=== PATIENT | male | born 1980 ===

== ENCOUNTER 2017-09-21 22:44 | Emergency (ER) | payer OTHER ==
[2017-09-21 22:59] VITALS: BP 131/78; PULSE 107; RESP 20; TEMP 99; O2SAT 97
[2017-09-21] MEDS ORDERED: Amoxicillin-Clav 875-125 mg Tab PO STA (23:02)
--- NOTE | 2017-09-21 23:05 | ED PDOC ---
HPI: CCC, URI, Sore Throat Time Seen by Provider: 09/21/17 22:59 Chief Complaint (Nursing): ENT Problem Chief Complaint (Provider): Sore throat History Per: Patient Additional Complaint(s): 37 yo male, no PMH, presents to ED with complaints of sore throat and fever x2 days. no other complaints. no sick contacted. took 1 tab Motrin 200 mg at 6 pm Past Medical History Reviewed: Nursing Documentation, Vital Signs Vital Signs: Last Vital Signs Temp 99 F 09/21/17 22:57 Pulse 107 H 09/21/17 22:57 Resp 20 09/21/17 22:57 BP 131/78 09/21/17 22:57 Pulse Ox 97 09/21/17 22:57 - Medical History PMH: Asthma - Surgical History Surgical History: No Surg Hx - Family History Family History: States: Unknown Family Hx - Living Arrangements Living Arrangements: With Family - Social History Alcohol: Occasional Drugs: Denies - Home Medications Home Medications: Ambulatory Orders Medication Instructions Recorded Amoxicillin/Clavulanate Pota 1 tab PO Q12 #14 tab 09/29/15 [Augmentin 875 mg-125 mg] Docusate [Colace] 100 mg PO BID #0 cap 09/29/15 oxyCODONE/Acetaminophen [Percocet 1 tab PO Q4 PRN #0 tab 09/29/15 5/325 mg Tab] Ibuprofen [Motrin Tab] 800 mg PO Q8 PRN #20 tab 12/22/16 - Allergies Allergies/Adverse Reactions: Allergies Allergy/AdvReac Type Severity Reaction Status Date / Time No Known Allergies Allergy Verified 09/23/15 19:23 Review of Systems ROS Statement: Except As Marked, All Systems Reviewed And Found Negative ENT: Positive for: Throat Pain Physical Exam - Reviewed Nursing Documentation Reviewed: Yes Vital Signs Reviewed: Yes - Physical Exam Appears: Positive for: Well, Non-toxic, No Acute Distress Head Exam: Positive for: ATRAUMATIC, NORMAL INSPECTION, NORMOCEPHALIC Skin: Positive for: Normal Color, Warm, DRY Eye Exam: Positive for: EOMI, Normal appearance, PERRL ENT: Positive for: Pharyngeal Erythema, Tonsillar Exudate, Other (no uvula devation). Negative for: Tonsillar Swelling Neck: Positive for: Normal, Painless ROM Cardiovascular/Chest: Positive for: Regular Rate, Rhythm Respiratory: Positive for: CNT, Normal Breath Sounds Gastrointestinal/Abdominal: Positive for: Normal Exam, Bowel Sounds, Soft Back: Positive for: Normal Inspection Extremity: Positive for: Normal ROM Neurologic/Psych: Positive for: Alert, Oriented - ECG O2 Sat by Pulse Oximetry: 97 Medical Decision Making Medical Decision Making: Medicated with Clindamycin 300 mg tab PO and Motrin 600 mg. Disposition - Clinical Impression Clinical Impression: Streptococcal sore throat - Patient ED Disposition Is Patient to be Admitted: No - Disposition Disposition: Routine/Home Disposition Time: 23:06 Condition: STABLE - POA Present On Arrival: None
[2017-09-21] MEDS ORDERED: Clindamycin ORAL SUSP 75 MG/5 ML PO STA (23:06)
== END 2017-09-21 23:21 | disposition home or self-care (01) ==
LOC: H.ER 22:44
DX: J02.0 Streptococcal pharyngitis (principal); J45.909 Unspecified asthma, uncomplicated

== ENCOUNTER 2017-09-23 10:02 | Emergency (ER) | payer OTHER ==
[2017-09-23 10:05] VITALS: PULSE 78
[2017-09-23] MEDS ORDERED: Sodium Chloride 0.9% 1,000 ML IV STA (10:39)
[2017-09-23] MEDS ORDERED: Dexamethasone 10 MG in Dextrose 5% In Water 50 ML IVP ONE (10:40)
--- NOTE | 2017-09-23 10:47 | ED PDOC ---
HPI: General Adult Time Seen by Provider: 09/23/17 10:20 Chief Complaint (Nursing): ENT Problem History Per: Patient Additional Complaint(s): Pt. states for the past 4 days he's had sore throat with tactile fever but has not checked his temperature. Pt. was seen in ED on 09/20/2017 for sore throat and was prescribed Clindamycin and Motrin which has not provided any relief. Denies abdominal pain, rash, fever, SOB, sick contacts, recent travel. Past Medical History Reviewed: Historical Data, Nursing Documentation, Vital Signs Vital Signs: Last Vital Signs Temp 97.2 F L 09/23/17 10:04 Pulse 78 09/23/17 10:04 Resp 20 09/23/17 10:04 BP 109/63 09/23/17 10:04 Pulse Ox 100 09/23/17 10:49 - Medical History PMH: Asthma - Family History Family History: States: No Known Family Hx - Home Medications Home Medications: Ambulatory Orders Medication Instructions Recorded Amoxicillin/Clavulanate Pota 1 tab PO Q12 #14 tab 09/29/15 [Augmentin 875 mg-125 mg] Docusate [Colace] 100 mg PO BID #0 cap 09/29/15 oxyCODONE/Acetaminophen [Percocet 1 tab PO Q4 PRN #0 tab 09/29/15 5/325 mg Tab] Ibuprofen [Motrin Tab] 800 mg PO Q8 PRN #20 tab 12/22/16 Clindamycin [Cleocin] 300 mg PO BID #14 cap 09/21/17 Ibuprofen [Motrin] 600 mg PO Q6 #20 tab 09/21/17 Amoxicillin/Clavulanate [Augmentin 1 tab PO Q8 #30 tab 09/23/17 875 MG-125 MG] - Allergies Allergies/Adverse Reactions: Allergies Allergy/AdvReac Type Severity Reaction Status Date / Time No Known Allergies Allergy Verified 09/23/15 19:23 Review of Systems ROS Statement: Except As Marked, All Systems Reviewed And Found Negative ENT: Positive for: Throat Pain, Throat Swelling Physical Exam - Physical Exam Appears: Positive for: Well, Non-toxic, No Acute Distress Skin: Positive for: Normal Color, Warm. Negative for: Rash Eye Exam: Positive for: EOMI, PERRL. Negative for: Normal appearance (L eye with upper eyelid droop (chronic for patient)), Periorbital swelling, Periorbital tenderness, Conjunctival injection ENT: Positive for: Pharyngeal Erythema, Tonsillar Exudate, Tonsillar Swelling ( but non-kissing), Other (mild uvular swelling; able to swallow saliva) Neck: Positive for: Normal, Painless ROM Cardiovascular/Chest: Positive for: Regular Rate, Rhythm Respiratory: Positive for: Normal Breath Sounds. Negative for: Respiratory Distress Gastrointestinal/Abdominal: Positive for: Normal Exam, Soft. Negative for: Tenderness Back: Positive for: Normal Inspection Extremity: Positive for: Normal ROM Neurologic/Psych: Positive for: Alert, Oriented. Negative for: Aphasia, Facial Droop - Laboratory Results Result Diagrams: 09/23/17 10:50 09/23/17 10:50 - ECG O2 Sat by Pulse Oximetry: 100 - Progress ED Course And Treament: Labs ordered. Toradol 30mg IV, decadron 10mg IV, IV NS bolus x 1 ordered. Pt. instructed to stop taking Clindamycin and to start Augmentin today. Disposition - Clinical Impression Clinical Impression: Uvulitis, Tonsillitis - Patient ED Disposition Is Patient to be Admitted: No - Disposition Referrals: [facility] [Outside] [facility] [place] [Outside] Disposition: Routine/Home Disposition Time: 12:15 Condition: STABLE Additional Instructions: STOP TAKING CLINDAMYCIN Prescriptions: Amoxicillin/Clavulanate [Augmentin 875 MG-125 MG] 1 tab PO Q8 #30 tab Instructions: Uvulitis (ED), Tonsillitis (ED) Forms: [employer] (American)
[2017-09-23 11:12] LABS: BASO % 0.5 % (0.0-2.0); EOS # 0.2 K/uL (0.0-0.7); EOS % 1.8 % (0.0-4.0); LYMPH # 1.6 K/uL (1.0-4.3); LYMPH % 14.9 % (20.0-40.0); MEAN CELL VOLUME 82.4 fl (80.0-94.0); MEAN CORPUSCULAR HEMOGLOBIN 27.6 pg (27.0-31.0); MEAN CORPUSCULAR HGB CONC 33.5 g/dL (33.0-37.0); MEAN PLATELET VOLUME 9.2 fl (7.2-11.7); MONO # 1.1 K/uL (0.0-0.8); MONO % 10.4 % (0.0-10.0); NEUT # 7.7 K/uL (1.8-7.0); NEUT % 72.4 % (50.0-75.0); RED CELL DISTRIBUTION WIDTH 14.1 % (11.5-14.5); WHITE BLOOD COUNT 10.7 K/uL (4.8-10.8)
[2017-09-23 11:18] LABS: ALB/GLOB RATIO 1.2 (1.0-2.1); ALKALINE PHOSPHATASE 98 U/L (38-126); ALT/SGPT 41 U/L (21-72); AST/SGOT 36 U/L (17-59); BILIRUBIN,TOTAL 0.6 mg/dl (0.2-1.3); BLOOD UREA NITROGEN 21 mg/dl (9-20); CALCIUM 9.1 mg/dL (8.4-10.2); CARBON DIOXIDE 23 mmol/L (22-30); CHLORIDE 108 mmol/L (98-107); GFR AFRICAN-AMERICAN > 60; GLUCOSE,RANDOM 116 mg/dL (75-110); POTASSIUM 4.1 MMOL/L (3.6-5.0); SODIUM 145 mmol/l (132-148); TOTAL PROTEIN 8.2 G/DL (6.3-8.2)
[2017-09-23 13:24] VITALS: BP 126/78; RESP 18; TEMP 97.6; O2SAT 98
== END 2017-09-23 13:24 | disposition home or self-care (01) ==
LOC: H.ER 10:02
DX: J03.90 Acute tonsillitis, unspecified (principal); K12.2 Cellulitis and abscess of mouth; J45.909 Unspecified asthma, uncomplicated
CPT/HCPCS: 80053; 85025; 86308; 87040; 87070; 87430; 96374; 96375; 99282; J1100; J1885; J7040

== ENCOUNTER 2018-01-14 20:39 | Emergency (ER) | payer OTHER ==
[2018-01-14 21:25] VITALS: BP 160/69; PULSE 97; RESP 16; TEMP 99; O2SAT 98
--- NOTE | 2018-01-14 21:45 | ED PDOC ---
HPI: CCC, URI, Sore Throat Time Seen by Provider: 01/14/18 21:43 Chief Complaint (Nursing): ENT Problem Chief Complaint (Provider): ENT Problem History Per: Patient History/Exam Limitations: no limitations Onset/Duration Of Symptoms: Days (x3) Current Symptoms Are (Timing): Still Present Additional Complaint(s): 37 year old male with medical history of asthma, presents to the emergency department with a complaint of sore throat ongoing for 3 days. Patient denied any fever, chills, nausea, vomiting or diarrhea. PMD: none provided Past Medical History Reviewed: Historical Data, Nursing Documentation, Vital Signs Vital Signs: Last Vital Signs Temp 99.0 F 01/14/18 21: Pulse 97 H 01/14/18 21:22 Resp 16 01/14/18 21:22 BP 160/69 H 01/14/18 21: Pulse Ox 98 01/14/18 21:49 - Medical History PMH: Asthma - Family History Family History: States: Unknown Family Hx - Social History Current smoker - smoking cessation education provided: No Ex-Smoker (has not smoked in the last 12 months): No Alcohol: None Drugs: Denies - Home Medications Home Medications: Ambulatory Orders Medication Instructions Recorded Amoxicillin/Clavulanate Pota 1 tab PO Q12 #14 tab 09/29/15 [Augmentin 875 mg-125 mg] Docusate [Colace] 100 mg PO BID #0 cap 09/29/15 oxyCODONE/Acetaminophen [Percocet 1 tab PO Q4 PRN #0 tab 09/29/15 5/325 mg Tab] Ibuprofen [Motrin Tab] 800 mg PO Q8 PRN #20 tab 12/22/16 Clindamycin [Cleocin] 300 mg PO BID #14 cap 09/21/17 Ibuprofen [Motrin] 600 mg PO Q6 #20 tab 09/21/17 Amoxicillin/Clavulanate [Augmentin 1 tab PO Q8 #30 tab 09/23/17 875 MG-125 MG] Ibuprofen [Motrin] 600 mg PO Q8 PRN #21 tab 01/14/18 - Allergies Allergies/Adverse Reactions: Allergies Allergy/AdvReac Type Severity Reaction Status Date / Time No Known Allergies Allergy Verified 09/23/15 19:23 Review of Systems ROS Statement: Except As Marked, All Systems Reviewed And Found Negative Constitutional: Negative for: Fever, Chills ENT: Positive for: Throat Pain Gastrointestinal: Negative for: Nausea, Vomiting, Diarrhea Physical Exam - Reviewed Nursing Documentation Reviewed: Yes Vital Signs Reviewed: Yes - Physical Exam Appears: Positive for: Non-toxic, No Acute Distress Skin: Positive for: Normal Color ENT: Positive for: TM Is/Are (clear bilaterally), Pharyngeal Erythema ( posteriorly). Negative for: Tonsillar Exudate, Tonsillar Swelling Cardiovascular/Chest: Positive for: Regular Rate, Rhythm, Chest Non Tender Respiratory: Positive for: Normal Breath Sounds. Negative for: Decreased Breath Sounds, Respiratory Distress Neurologic/Psych: Positive for: Alert (x3), Oriented - ECG O2 Sat by Pulse Oximetry: 98 (RA) Pulse Ox Interpretation: Normal - Progress ED Course And Treament: RAPID STREP: NEG THROAT CX SENT Medical Decision Making Medical Decision Making: Initial Impression: Throat pain Initial Plan: Scribe Attestation: Documented by Lydia Phelps, acting as a scribe for Myles Galindo PA-C. Provider Scribe Attestation: All medical record entries made by the Scribe were at my direction and personally dictated by me. I have reviewed the chart and agree that the record accurately reflects my personal performance of the history, physical exam, medical decision making, and the department course for this patient. I have also personally directed, reviewed, and agree with the discharge instructions and disposition. Disposition - Clinical Impression Clinical Impression: Pharyngitis - Patient ED Disposition Is Patient to be Admitted: No - Disposition Referrals: [facility] [Outside] Disposition: Routine/Home Disposition Time: 22:50 Condition: FAIR Prescriptions: Ibuprofen [Motrin] 600 mg PO Q8 PRN #21 tab PRN Reason: Pain, Moderate (4-7) Instructions: Viral Pharyngitis Forms: [facility] ED School/Work Excuse
== END 2018-01-14 23:10 | disposition home or self-care (01) ==
LOC: H.ER 20:39
DX: J02.9 Acute pharyngitis, unspecified (principal)

== ENCOUNTER 2018-01-16 00:53 | Emergency (ER) | payer OTHER ==
[2018-01-16 01:19] VITALS: BP 145/75; PULSE 101; RESP 18; TEMP 99.2; O2SAT 97
--- NOTE | 2018-01-16 02:13 | ED PDOC ---
HPI: CCC, URI, Sore Throat Time Seen by Provider: 01/16/18 01:50 Chief Complaint (Nursing): ENT Problem Chief Complaint (Provider): sore throat History Per: Patient History/Exam Limitations: no limitations Onset/Duration Of Symptoms: Days (3) Current Symptoms Are (Timing): Still Present Location Of Pain: Throat Additional Complaint(s): 37 y/o male presents with sore throat x 3 days. Patient states he was evaluated in ED on 01/14 and had a negative rapid strep test and was sent for culture but returns today due to persistent pain. Denies fever, difficulty speaking/ swallowing, cough, chest pain, shortness of breath, palpitations. Past Medical History Reviewed: Historical Data, Nursing Documentation, Vital Signs Vital Signs: Last Vital Signs Temp 99.2 F 01/16/18 01:14 Pulse 101 H 01/16/18 01:14 Resp 18 01/16/18 01:14 BP 145/75 01/16/18 01:14 Pulse Ox 97 01/16/18 02:13 - Medical History PMH: Asthma - Family History Family History: States: Unknown Family Hx - Home Medications Home Medications: Ambulatory Orders Medication Instructions Recorded Amoxicillin/Clavulanate Pota 1 tab PO Q12 #14 tab 09/29/15 [Augmentin 875 mg-125 mg] Docusate [Colace] 100 mg PO BID #0 cap 09/29/15 oxyCODONE/Acetaminophen [Percocet 1 tab PO Q4 PRN #0 tab 09/29/15 5/325 mg Tab] Ibuprofen [Motrin Tab] 800 mg PO Q8 PRN #20 tab 12/22/16 Clindamycin [Cleocin] 300 mg PO BID #14 cap 09/21/17 Ibuprofen [Motrin] 600 mg PO Q6 #20 tab 09/21/17 Amoxicillin/Clavulanate [Augmentin 1 tab PO Q8 #30 tab 09/23/17 875 MG-125 MG] Ibuprofen [Motrin] 600 mg PO Q8 PRN #21 tab 01/14/18 - Allergies Allergies/Adverse Reactions: Allergies Allergy/AdvReac Type Severity Reaction Status Date / Time No Known Allergies Allergy Verified 01/16/18 01:14 Review of Systems ROS Statement: Except As Marked, All Systems Reviewed And Found Negative ENT: Positive for: Throat Pain Physical Exam - Reviewed Nursing Documentation Reviewed: Yes Vital Signs Reviewed: Yes - Physical Exam Appears: Positive for: Well, Non-toxic, No Acute Distress Head Exam: Positive for: ATRAUMATIC, NORMAL INSPECTION, NORMOCEPHALIC Skin: Positive for: Normal Color Eye Exam: Positive for: Normal appearance ENT: Positive for: Pharyngeal Erythema. Negative for: Tonsillar Exudate, Tonsillar Swelling Cardiovascular/Chest: Positive for: Regular Rate, Rhythm Respiratory: Positive for: Normal Breath Sounds Gastrointestinal/Abdominal: Positive for: Normal Exam Extremity: Positive for: Normal ROM Lymphatic: Positive for: Normal Exam Neurologic/Psych: Positive for: Alert, Oriented - ECG O2 Sat by Pulse Oximetry: 97 - Progress ED Course And Treament: Decadron IM Patient educated on findings, advised to continue ibuprofen. Will await throat cx results. Follow up PMD 2-3 days. Return precautions given. Disposition - Clinical Impression Clinical Impression: Pharyngitis - Patient ED Disposition Is Patient to be Admitted: No Counseled Patient/Family Regarding: Diagnosis, Need For Followup - Disposition Referrals: [facility] [Outside] Disposition: Routine/Home Disposition Time: 02:33 Condition: IMPROVED Instructions: Viral Pharyngitis Forms: [employer] (Slovenian)
== END 2018-01-16 03:18 | disposition home or self-care (01) ==
LOC: H.ER 00:53
DX: J02.9 Acute pharyngitis, unspecified (principal); Z87.891 Personal history of nicotine dependence
CPT/HCPCS: 96372; 99282; J1100